=== PATIENT | male | born 1955 | race Caucasian/White ===

== ENCOUNTER → 2024-10-02 06:16 | Day surgery (SDC) | payer MEDICARE, OTHER, SELFPAY | LOC: GI 06:16 | PROVIDERS: ATTENDING PHYSICIAN Specialist; FAMILY PHYSICIAN Internal Medicine | DX: Z12.11 Encounter for screening for malignant neoplasm of colon (principal); D12.0 Benign neoplasm of cecum; K57.30 Diverticulosis of large intestine without perforation or abscess without bleeding; Z86.0101 Personal history of adenomatous and serrated colon polyps | CPT/HCPCS: 45380; 88305 ==

== ENCOUNTER 2024-10-24 15:06 | Emergency (ER) | payer MEDICARE, SELFPAY ==
[2024-10-24 15:07] VITALS: BP 166/98
[2024-10-24 15:24] LABS: % Basophils 0.4 % (0-2); % Eosinophils 0.5 % (0-6); % Immature Granulocytes 0.3 % (0-0.5); % Lymphocytes 9.2 % (20.5-51.1); % Monocytes 5.6 % (1.7-9.3); Absolute Basophils 0.1 10^3/uL (0-0.2); Absolute Eosinophils 0.1 10^3/uL (0-0.7); Absolute Lymphocytes 1.2 10^3/uL (1.2-3.4); Absolute Monocytes 0.8 10^3/uL (0.1-0.6); Absolute Neutrophils 11.2 10^3/uL (1.4-6.5); Hematocrit 42.1 % (39.0-52.0); Hemoglobin 14.3 g/dL (13.0-18.0); Mean Corpuscular Hgb 30.1 pg (27.0-31.0); Mean Corpuscular Volume 88.6 fL (80.0-94.0); Mean Platelet Volume 8.7 fL (7.4-10.4); Nucleated Red Blood Cells % 0 % (-); Platelet Count 246 10^3/uL (130-400); Red Blood Cell Count 4.75 10^6/uL (4.70-6.10); Red Cell Dist. Width 13.5 % (11.5-14.5); White Blood Cell Count 13.3 10^3/uL (4.8-10.8)
[2024-10-24 15:43] LABS: ALT (SGPT) 36 U/L (0-50); AST (SGOT) 36 U/L (17-59); Albumin 4.8 g/dl (3.5-5.0); Alkaline Phosphatase 110 U/L (38-126); Blood Urea Nitrogen 16 mg/dl (9-20); Calcium 9.6 mg/dl (8.4-10.2); Carbon Dioxide 29 mmol/L (22-30); Chloride 100 mmol/L (98-107); Glucose 128 mg/dl (70-99); Potassium 4.1 mmol/L (3.5-5.1); Sodium 138 mmol/L (135-145); Total Bilirubin 0.6 mg/dl (0.2-1.3); Total Protein 7.5 g/dl (6.3-8.2); eGFR > 60.00
[2024-10-24 15:56] LABS: Troponin I < 0.012 ng/ml
--- NOTE | 2024-10-24 19:29 | ED.GENMED ---
History of Present Illness
General
Chief Complaint: Chest Pain
Source: patient
Exam Limitations: none
Time Seen by Provider: 10/24/24 19:08
History of Present Illness
History of Present Illness:
69yoM with a history of hyperlipidemia and GERD presenting with his for evaluation of chest and abdominal pain. Patient was celebrating yesterday and had several drinks of alcohol throughout the day. He states he split a bottle
of wine with his in the afternoon and then had 2 martinis and some eggnog in the evening. Patient woke up around 1 AM with nausea and had 2 episodes of vomiting at that time. Patient has been having ongoing epigastric pain since then which he
describes as burning. He also has intermittent left-sided chest pain which is described as a discomfort. He states his heart rate has been elevated throughout the day today in the low 100s. He returned home from the [place] this morning. He
went to urgent care due to his symptoms and was sent to the ED for evaluation.
Phy Exam
General Physical Exam
General Presentation: well appearing and no apparent distress
General age: appears stated age
General Skin: warm and dry
General Habitus: normal
General Mental: alert
ENT Exam
ENT Exam: normocephalic
Cardiovascular Exam
Cardiovascular Exam: regular rate/rhythm and no edema
Pulmonary Exam
Pulmonary Exam: lungs clear, no respiratory distress, no rales, no crackles and no rhonchi
Gastrointestinal Exam
Gastrointestinal Exam: soft, non distended and other (+Epigastric tenderness. Abdomen soft, non-distended. No rebound or guarding. )
Neurological Exam
Neurological Exam: alert
[place] Coma Scale
Eye Opening: Spontaneous
Verbal Response: Oriented
Motor Response: Obeys Commands
GCS Total Score: 15
Skin Exam
Skin Exam: normal color and warm/dry
Psychiatric Exam
Psychiatric Exam: normal mood/affect
Scores
Heart Score for Chest Pain Patients
STEMI patient?: No
History: Slightly or Non-Suspicious
ECG: Nonspecific Repolarization
Age: >/= 65 years
Risk Factors: 1 or 2 Risk Factors
Troponin: </= Normal Limit
Heart Score for Chest Pain Patients: 4
Heart Score Risk: 20.3% MACE over next 6 weeks
Course
Orders/Labs/Results
Orders:
Orders
10/24/24 15:09
Electrocardiogram (*1) Urgent
Reason for Study: Chest Pain
10/24/24 15:10
EKG- Treatment ONCE
10/24/24 15:18
Complete Blood Count/With Diff Urgent
Comprehensive Metabolic Panel Urgent
Lipase Urgent
Comment: ADD ON
Troponin I Urgent
10/24/24 19:27
Electrocardiogram (*1) Urgent
Reason for Study: Chest Pain
Cardiac Monitoring- Treatment ONCE
EKG- Treatment ONCE
0.9% Sodium Chloride 500 ml [Nss] 500 ml IV BOLUS
Famotidine [Pepcid] 20 mg IV NOW STA
Ondansetron Injectable [Zofran] 4 mg IV NOW STA
10/24/24 20:23
D-Dimer Urgent
Troponin I Urgent
10/24/24 21:30
CT Abd/pelvis W Iv Cont Urgent
Comment:
Reason For Exam: Epigastric pain
10/24/24 21:31
CR Chest - 2 Views Urgent
Comment:
Reason For Exam: CP
10/24/24 23:51
Urinalysis Reflex To Culture Urgent
10/25/24 00:00
Pantoprazole [Protonix IV] 40 mg IV NOW STA
Abnormal Lab Results
10/24/24
15:18
WBC 13.3 H 10^3/uL
(4.8-10.8)
Absolute Neuts (auto) 11.2 H 10^3/uL
(1.4-6.5)
Absolute Monos (auto) 0.8 H 10^3/uL
(0.1-0.6)
Neutrophils % 84.0 H %
(42.2-75.2)
Lymphocytes % 9.2 L %
(20.5-51.1)
Glucose 128 H mg/dl
(70-99)
10/24/24 15:18
10/24/24 15:18
Vital Signs
Initial and Last Documented VS:
Initial Vital Signs
Temp Pulse Resp BP Pulse Ox
98.5 F 110 18 166/98 96
10/24/24 15:07 10/24/24 15:07 10/24/24 15:07 10/24/24 15:07 10/24/24 15:07
Last Documented Vital Signs
Temp Pulse Resp BP Pulse Ox
98.5 F 87 16 162/80 93
10/24/24 15:07 10/24/24 23:00 10/24/24 23:00 10/24/24 23:00 10/24/24 23:35
MDM/Problems Addressed
Differential Diagnosis Includes:
69yoM here with burning epigastric pain since last night. Also c/o intermittent L sided chest pain. Had 2 episodes of vomiting at symptom onset. Heart rate 110 in triage. BP mildly elevated. Remainder of vitals are normal. Patient is
nontoxic-appearing. No signs of peritonitis on abdominal exam. Differential diagnosis includes but is not limited to: ACS, PE, GERD, gastritis, pancreatitis, biliary colic
Initial ED plan: Cardiac labs and EKG obtained in triage. EKG shows normal sinus rhythm with T wave flattening in inferior leads. Troponin within normal limits. Leukocytosis noted with a white count of 13 which is nonspecific. LFTs normal. Will
check lipase, D-dimer, repeat troponin/EKG, and CXR vs. CT depending on D-dimer results.
*EKG
Interpreted by ED Provider?: Yes
EKG Intrepretation Date: 10/24/24
Heart Rate: 102
Rate: tachycardiac
Rhythm: sinus
[place]: normal axis
Interval: normal interval
QRS Pattern: normal QRS
Ischemia: non-specific ST changes (T wave flattening in inferior leads)
*Critical Care Note
Total Time (30-74mins, 75-104mins- exclusive of procedures): Not Applicable
Update Note
Update Note:
Lipase within normal limits. D-dimer normal making PE very unlikely. Repeat EKG/troponin unchanged. Chest x-ray is clear per my interpretation. No acute findings in the upper abdomen noted on preliminary vision radiology report. Bladder wall
thickening incidentally seen on imaging. Patient denies any urinary symptoms although will check UA for completeness. On reassessment, patient continues to report some pain in his upper abdomen and feels bloated. Unclear etiology of symptoms.
Question gastritis. Will restart patient on Protonix and have him follow-up closely with his PCP and aircraft manager. Strict ED return precautions discussed. Patient in agreement with plan and was discharged in stable condition.
ED Attending Note
-
Portions of this chart may have been created with voice recognition software.� Occasional wrong word or��sound alike� substitutions may have occurred due to the inherent limitations of voice recognition software.
Discharge Plan
Departure
Patient Disposition: Home (Routine Discharge)
Date of Disposition: 10/25/24
Time of Disposition: 00:00
Patient with high blood pressure during this ER visit?: Yes
Discharge Problem:
Epigastric abdominal pain
Instructions: Abdominal pain in adults - Discharge instructions
Prescriptions:
New
pantoprazole [Protonix] 40 mg tablet,delayed release (DR/EC)
40 mg PO DAILY Qty: 30 0RF
No Action
simvastatin 20 MG tablet
10 mg PO HS
ibuprofen 200 MG tablet
400 mg PO Q6H PRN (Reason: PAIN)
multivitamin with folic acid [Tab-A-Jadiel] 1 TABLET tablet
1 tab PO DAILY
aspirin [[place] Aspirin] 81 MG tablet,delayed release (DR/EC)
81 mg PO DAILY
Referrals:
Mike Crouch I., DO [Family Provider] -
Activity Restrictions/Additional Instructions:
Take Protonix as prescribed. Take Pepcid 20mg twice a day as needed.
Please call tomorrow to schedule a follow-up appointment with your family doctor and aircraft manager.
Return to the ER with any worsening symptoms, severe pain, fevers.
Interventions
Interventions:
*Risk Screen - Suicide Last Done: 10/24/24 15:07
*General Assessment Last Done: 10/24/24 15:07
*Neglect/Abuse Screening Last Done: 10/24/24 15:07
ED- Fall Risk Assessment Last Done: 10/24/24 20:12
*ED COVID-19 Vaccine History Last Done: 10/24/24 15:07
ED- Cardiac Assessment Last Done: 10/24/24 20:12
Discharge Date and Time
Print Language: ARABIC
[2024-10-24 19:44] VITALS: BP 186/94
[2024-10-24 20:00] VITALS: BP 159/86
[2024-10-24] MEDS: NSS 500 IV (20:03)
[2024-10-24] MEDS: ZOFRAN 4 MG IV (20:03)
[2024-10-24] MEDS: PEPCID 20 MG IV (20:03)
[2024-10-24 20:12] VITALS: BMI 26.9
[2024-10-24 20:33] LABS: Lipase 60 U/L (23-300)
[2024-10-24 20:58] LABS: Troponin I < 0.012 ng/ml
[2024-10-24 21:00] VITALS: BP 155/76
[2024-10-24 22:30] VITALS: BP 161/85
[2024-10-24 23:00] VITALS: BP 162/80
[2024-10-25 00:08] VITALS: BP 161/88
[2024-10-25] MEDS: PROTONIX IV 40 MG IV (00:09)
[2024-10-25 00:32] LABS: Urine Albumin Negative (Neg - Trace); Urine Bilirubin Negative (Negative); Urine Character Clear (Clear); Urine Color Yellow; Urine Glucose Negative (Negative); Urine Ketone Negative (Negative); Urine Leukocyte Negative (Negative); Urine Nitrite Negative (Negative); Urine Occult Blood Negative (Negative); Urine Urobilinogen Negative (Neg - 1+)
== END 2024-10-25 00:30 | disposition home or self-care (01) ==
LOC: EMR 15:06
PROVIDERS: Physician Assistant; EMERGENCY PHYSICIAN Student in an Organized Health Care Education/Training Program; FAMILY PHYSICIAN Internal Medicine
DX: R10.13 Epigastric pain (principal); R11.2 Nausea with vomiting, unspecified; R07.89 Other chest pain; R03.0 Elevated blood-pressure reading, without diagnosis of hypertension; K21.9 Gastro-esophageal reflux disease without esophagitis
CPT/HCPCS: 99285; 96375 ×2; 96361; 96374; 71046; 74177; 80053; 81003; 83690; 84484; 85025; 85379; 93005; Q9967